=== PATIENT | male | born 1940 | race Caucasian/White ===

== ENCOUNTER → 2016-10-27 | Outpatient (CLI) | payer MEDICARE, OTHER ==
[~2016-10-27] MED LIST: LEVOTHYROXINE25 MCG PO; LOPRESSOR DPS100 MG PO; NORVASC DPS10 MG PO; PROTONIX40 MG PO; ZYLOPRIM-DPS100 MG PO
== END | disposition home or self-care (01) ==
LOC: PTH.S 09:48
DX: Z01.812 Encounter for preprocedural laboratory examination (principal); M16.12 Unilateral primary osteoarthritis, left hip

== ENCOUNTER 2016-11-06 09:37 | Inpatient (IN) | payer MEDICARE, OTHER ==
[~2016-11-06] VITALS: Ht 167.6 cm; Wt 82.0 kg
[2016-11-09] MEDS ORDERED: ZYLOPRIM-DPS100 MG PO (11:51)
[2016-11-09] MEDS ORDERED: LOPRESSOR DPS100 MG PO ×2 (11:51)
[2016-11-09] MEDS ORDERED: NORVASC DPS10 MG PO (11:52)
[2016-11-09] MEDS ORDERED: LEVOTHYROXINE25 MCG PO (11:52)
[2016-11-09] MEDS ORDERED: PROTONIX40 MG PO (11:52)
--- NOTE | 2016-11-13 12:00 | HP ---
ADMIT: 11/06/2016 RM/LOC: 512 [facility] MR#: [id number] [facility] [address] [address] CAMP PAUL D [address] [place] [address] Pre-OP History and Physical SEX: M AGE: 76 : 1940 DATE OF SERVICE: CHIEF COMPLAINT: Left hip pain. HISTORY: This 76-year-old gentleman presents today for left total hip arthroplasty. He has had all of the usual conservative care in the past. He has pain on initiation of activities, pain at rest, and pain that interferes with activities of daily living. PAST MEDICAL HISTORY: MEDICATIONS: Include: 1. Allopurinol. 2. Ranitidine. 3. Metoprolol. 4. Pantoprazole. 5. Vitamin D3. 6. Baby aspirin a day. 7. Fish oil. 8. Viagra p.r.n. 9. Prednisone. 10.Amlodipine. ALLERGIES: NO ALLERGIES TO MEDICINES. FAMILY HISTORY: Noncontributory. SOCIAL HISTORY: This is a patient of Dr. Montiel. He is retired and lives here in [place]. PHYSICAL EXAMINATION: This patient has 130 degrees of flexion of the left ADMIT: 11/06/2016 RM/LOC: 512 [facility] MR#: [id number] [facility] [address] [address] [address]IL [address] [facility] [place] [address] Pre-OP History and Physical SEX: M AGE: 76 : 1940 hip. He has no internal rotation. He externally rotates about 30 degrees and abducts about 20. DIAGNOSTIC DATA: Radiographs show severe hip arthritis with joint space collapse, subchondral sclerosis, and marginal osteophytes. IMPRESSION: Osteoarthritis, left hip. RECOMMENDATIONS: Left total hip arthroplasty. Risks, benefits, alternatives, well potential complications were discussed. EDIT: 11/07/2016 1827 ajf Gricelda Stevens MD/ wander JOB #: [id number] CC: Gricelda Stevens, Attending Physician Gina Montiel, Family Physician
--- NOTE | 2016-11-13 12:00 | OR ---
ADMIT: 11/06/2016 RM/LOC: 512 [facility] MR#: [id number] [address] [address] [address] YANG [address] [place] [address] Operative/Delivery Room Report SEX: M AGE: 76 : 1940 SURGERY DATE: 11/06/2016 SURGEON: Gricelda Stevens MD PREOPERATIVE DIAGNOSIS: Severe osteoarthritis, left hip. POSTOPERATIVE DIAGNOSIS: Severe osteoarthritis, left hip. PROCEDURE: Left total hip arthroplasty. ASSISTED BY: Jean Irby PA-C. ANESTHESIA: Spinal. ESTIMATED BLOOD LOSS: 200 mL. COMPLICATIONS: None. SPECIMEN: Bone. COMPONENTS: DePuy #7 standard Porous Blackford femoral stem, 52 mm Ohlman cup with a neutral liner, 36 mm metallic head, 1.5 neck length. DESCRIPTION OF PROCEDURE: This patient was brought to the operating room after satisfactory level of anesthesia was achieved. He was placed on the operative table in a right lateral decubitus position. All bony prominences were well padded and the extremity was then circumferentially prepped and draped in the usual sterile fashion. A posterior approach to the hip was made carrying my skin incision through a subcutaneous layer down to the iliotibial band at the base of the greater trochanter. This was opened. My dissection was then carried up to the tip of the trochanter, then curved posteriorly where I split the gluteus aldo in line with its fibers. Retractor was then placed deep to this structure for visualization of the hip. A piriformis was then identified and a capsular incision made superior to this and then carried down to the piriformis fossa. The external rotators and joint capsule were then released from the greater trochanter posteriorly using subperiosteal dissection and then this flap of tissue was retracted posteriorly and preserved. The hip was then dislocated. A step drill was then used to open the piriformis fossa, a canal finder followed by lateralizing reamer, and then I was able to ream up to a #7 where we actually cut a little cortex at a 6, but began cutting more cortex at 7. An external alignment guide was then used to make my femoral neck cut. My femoral head measured about 46 or 47 mm, but was markedly misshapen because of the arthritic change of the hip. After proper positioning of the proximal femur, I was then able to seat a broach the proximal femur and finally seat a #7 femoral broach. A calcar reamer was then used and this broach was then removed from the femur and the femur then displaced anteriorly and after proper positioning of retractors around the acetabulum, I started with a 45 mm reamer, bottomed this out at the floor of the acetabular fossa and then sequentially reamed up to a 51 mm for a 52 mm ADMIT: 11/06/2016 RM/LOC: 512 [facility] MR#: [id number] [address] [place] [address] PA[address] YANG [address] [place] [address] Operative/Delivery Room Report SEX: M AGE: 76 : 1940 cup. I did use a 52 reamer just on the lip of the acetabulum because there was a sclerotic ridge which would prevent me from seating a 52 mm. I was able to seat a 52 mm Ohlman cup. I had put the holes in the inferior position simply because we get such a tight fit, and I was able to keep the inferior lip of the cup parallel to the transverse acetabular ligament and just inside the transverse acetabular ligament indicating sufficient abduction and anteversion of the cup. A trial liner was then placed on the acetabulum, and I tried both a 1.5 neck length and 5, and I found that the 5 could not get him back to full extension. That was too tight, 1.5 was very stable with a standard stem, I could flex the patient's hip to 90 degrees, completely adduct the hip, then internal rotation to 90 degrees before it would dislocate posteriorly. All trial components were removed. Exparel was used per protocol. The acetabular liner was impacted into position. The #7 standard offset femoral stem was impacted into the femur and finally our 36 mm metallic head with a 1.5 neck length was impacted onto the femoral neck and the hip reduced. Once again, our final check of stability matched that of our trial where I could flex him to 90 degrees, completely adduct the hip and then internally rotate the hip to about 90 degrees before he would start to sublux posteriorly. There were some marginal spurs around the acetabulum that I did remove with a rongeur, particularly posteriorly. At this point, the capsule was repaired with interrupted #5 Ethibond. The piriformis was repaired through bone tunnels and the trochanter using #5 Ethibond and then the iliotibial band and gluteus aldo fiber were closed with a combination of #1 Vicryl and running #2 Quill suture. The subcutaneous tissue was closed in multiple layers with 2-0 Vicryl, and then a running subcuticular 3-0 Monocryl in the skin and finally Ethicon Prineo on the skin. A sterile dressing was then applied and the patient was transferred from the operative suite in stable condition. Gricelda Stevens MD/ wander JOB #: [id number] CC: Gricelda Stevens, Attending Physician Gina Montiel, Family Physician
--- NOTE | 2016-11-20 08:28 | CO ---
ADMIT: 11/06/2016 RM/LOC: W.04 [facility] MR#: [id number] [address] [address] CELIAPAUL Farzaneh [address] [place] [address] Consultation Report SEX: M AGE: 76 : 1940 DATE OF CONSULTATION: 10/30/2016 ATTENDING PHYSICIAN: Gricelda Stevens CONSULTING PHYSICIAN: Modesto Salazar DO REASON FOR PREOP CONSULT: Left hip replacement. HISTORY: This is a 76-year-old, male patient of Dr. Montiel, who came to the clinic this afternoon to undergo preoperative assessment prior to left hip replacement on the . The patient does have a longstanding history of chronic kidney disease, stage 3; renal osteodystrophy; osteoarthritis; chronic low back pain; essential hypertension; hyperlipidemia; and gastroesophageal reflux. He also has an underlying history of gout. CURRENT MEDICATIONS: 1. Allopurinol 100 mg p.o. daily. 2. Amlodipine 10 mg daily. 3. Aspirin 81 mg daily, which we are holding one week in advance from surgery. 4. He also takes levothyroxine 25 mcg daily. 5. Pantoprazole 20 mg daily. 6. Ranitidine 150 mg daily as needed. 7. Sildenafil 100 mg daily p.r.n. 8. Vitamin D3, 2000 units daily. 9. He is on metoprolol 100 mg daily. SOCIAL HISTORY: He does not smoke. He is active. FAMILY HISTORY: Noncontributory. REVIEW OF SYSTEMS: He denies any history of clotting or bleeding disorder. No peptic ulcer disease. Denies nausea, vomiting, diarrhea, constipation, hematemesis, hematochezia, melena, fevers, chills, cough, and sputum production. PHYSICAL EXAMINATION: GENERAL: He is pleasant, alert, and in no apparent distress. His blood pressure currently is 152/86. He has a body mass index of 29.2. HEENT: Ear, nose, and throat is normal. No JVD or bruit. HEART: Regular. LUNGS: Clear. ABDOMEN: Soft, nontender. EXTREMITIES: Without edema. He has good pulses. LABORATORY DATA: His creatinine is 2.1. ADMIT: 11/06/2016 RM/LOC: W.04 [facility] MR#: [id number] [facility] [address] [address] [address] YANG [address] [place] [address] Consultation Report SEX: M AGE: 76 : 1940 His EKG is in normal sinus rhythm. IMPRESSION: 1. Generally healthy 76-year-old male patient with osteoarthritis in need of left hip replacement. 2. Underlying history of hypertension; chronic kidney disease, stage 3; gout; hypothyroidism; and reflux. PLAN: We will hold all anti-inflammatories with exception of postoperative institution of a full dose 325 mg aspirin daily for six weeks postop. We will help and assist with managing his care postoperatively. Modesto Salazar DO/ wander JOB #: [id number] CC: Gricelda Stevens, Attending Physician Gina Montiel, Family Physician
--- NOTE | 2016-12-01 13:52 | DS ---
ADMIT: 11/06/2016 RM/LOC: 512 [facility] MR#: [id number] [address] [address] [address] YANG [address] [place] [address] General Discharge Summary SEX: M AGE: 76 : 1940 ADMISSION DATE: 11/06/2016 DISCHARGE DATE: 11/08/2016 REASON FOR ADMISSION: Elective left total hip arthroplasty after failing conservative care. PREOPERATIVE DIAGNOSIS: Severe osteoarthritis of the left hip. POSTOPERATIVE DIAGNOSIS: Severe osteoarthritis of the left hip. PROCEDURE PERFORMED: Left total hip arthroplasty. SURGEON: Dr. Gricelda Stevens. BUSINESS ECONOMIST: Jean Irby PA-C ANESTHESIA: Spinal. ESTIMATED BLOOD LOSS: 200 mL. COMPLICATIONS: None. ACTIVE MEDICAL PROBLEMS: 1. History of chronic kidney disease, stage 3. 2. Renal osteodystrophy. 3. Osteoarthritis. 4. Chronic low-back pain. 5. Essential hypertension. 6. Hyperlipidemia. 7. Gastroesophageal reflux disease. HOSPITAL COURSE: The patient was admitted on 11/06/2016 for elective left total hip arthroplasty done successfully without any complications by Dr. Gricelda Stevens. He tolerated the procedure well. Postoperatively, he did well with pain control with the use of intraoperative Exparel and postoperative oral analgesics. As expected, the patient did suffer from some mild blood loss anemia, his hemoglobin dropped to 10.5 on 11/08/2016, but he remained hemodynamically stable, and did not require blood transfusion. By postoperative day #2, he was stable and participating well with physical therapy. He was safe and ready for discharge home with plans for physical therapy home exercises. DISCHARGE MEDICATIONS: 1. Allopurinol 100 mg every day. 2. Metoprolol tartrate 50 mg in the evening. 3. Metoprolol tartrate 100 mg every morning. 4. Amlodipine 5 mg everyday. 5. Levothyroxine 25 mcg everyday. 6. Protonix 40 mg at bedtime for 6 weeks. ADMIT: 11/06/2016 RM/LOC: 512 [facility] MR#: [id number] [address] [address] [address] YANG [address] [place] [address] General Discharge Summary SEX: M AGE: 76 : 1940 7. Vitamin D3, 2000 units everyday. 8. Aspirin 325 mg at bedtime for 6 weeks. 9. MiraLax 17 g everyday. 10.Senokot two tablets at bedtime. 11.Tylenol 325 mg every 6 hours as needed. 12.Ultram 50 mg one to two tablets every 6 hours as needed. 13.Oxycodone 5 mg one to two tablets every 6 hours as needed for pain. DISCHARGE INSTRUCTIONS: The patient was discharged home with plans for physical therapy home exercises for his left total hip arthroplasty. Follow up in the Orthopedic office in two weeks for wound check and in six weeks with x-ray. Follow up with primary care as directed. ASAD Hidalgo / Gricelda Stevens MD / wander JOB #: [id number] CC: Gricelda Stevens MD, Attending Physician Gina Montiel MD, Family Physician
== END 2016-11-08 14:35 | disposition home or self-care (01) | DRG 470 ==
LOC: WOR 09:37 → 5MS 09:37
PROVIDERS: ADMIT Orthopaedic Surgery
PROC: 0SRB02A Replacement of Left Hip Joint with Metal on Polyethylene Synthetic Substitute, Uncemented, Open Approach (ICD-10-PCS; principal; 2016-11-06)
DX: M16.12 Unilateral primary osteoarthritis, left hip (principal); N18.3 Chronic kidney disease, stage 3 (moderate); D50.0 Iron deficiency anemia secondary to blood loss (chronic); I12.9 Hypertensive chronic kidney disease with stage 1 through stage 4 chronic kidney disease, or unspecified chronic kidney disease; Q78.9 Osteochondrodysplasia, unspecified; M19.90 Unspecified osteoarthritis, unspecified site; M54.5 Low back pain; E03.9 Hypothyroidism, unspecified; K44.9 Diaphragmatic hernia without obstruction or gangrene; E78.5 Hyperlipidemia, unspecified; K21.9 Gastro-esophageal reflux disease without esophagitis; M10.9 Gout, unspecified; Z79.52 Long term (current) use of systemic steroids; Z79.82 Long term (current) use of aspirin